=== PATIENT | female | born 1990 | race Two or more races ===

== ENCOUNTER 2023-04-05 11:10 | Outpatient (CLI) | payer OTHER, SELFPAY ==
--- NOTE | 2023-04-05 11:15 | CRLHL7_ITS ---
For Patients: As a result of the Century Cures Act, medical imaging exams and procedure reports are released immediately into your electronic medical record. You may view this report before your referring provider. If you have questions, please contact your health care provider. INDICATION: First trimester scan, establish dates. COMPARISON: None. TECHNIQUE: Real-time rodriguez-scale imaging of the pelvis was performed. FINDINGS: Sonographic imaging demonstrates a single living intrauterine gestation. The embryo demonstrates a regular cardiac rate measuring 113 beats per minute. The embryo`s crown-rump length measurement of 0.3 cm corresponds to a gestational age of 5 weeks 6 days with a sonographic due date of 11/30/2023. There is a normal-appearing yolk sac. There are no gross abnormalities noted within the embryo at this early state of development. The gestational sac has a normal appearance. There is no evidence of a perigestational hemorrhage. The amount of fluid within the sac appears appropriate for gestational age. The cervix is closed. The myometrium appears normal. The ovaries are of normal size. Corpus luteal cyst right ovary. There are no suspicious fluid collections noted in the cul-de-sac. IMPRESSION: Normal early first trimester OB ultrasound exam. Gestational age calculated at 5 weeks 6 days with a sonographic due date of 11/30/2023. Dictated by Manish Rodriguez MD @ 04/05/2023 11:54:44 AM (Electronically Signed)
== END 2023-04-05 11:11 | disposition home or self-care (01) ==
LOC: US 11:11
PROVIDERS: Visit Provider Physician Assistant
DX: Z34.91 Encounter for supervision of normal pregnancy, unspecified, first trimester (principal); Z3A.01 Less than 8 weeks gestation of pregnancy
CPT/HCPCS: 76817; 84702

== ENCOUNTER 2023-04-15 10:56 | Outpatient (CLI) | payer OTHER, SELFPAY | END 2023-04-15 10:57 | disposition home or self-care (01) | LOC: NFLDREF 04-17 10:19 | PROVIDERS: Visit Provider Physician Assistant | DX: Z34.90 Encounter for supervision of normal pregnancy, unspecified, unspecified trimester (principal) | CPT/HCPCS: 84702 ==

== ENCOUNTER 2023-04-23 12:47 | Outpatient (CLI) | payer SELFPAY | END 2023-04-23 12:48 | disposition home or self-care (01) | PROVIDERS: Visit Provider Physician Assistant | DX: O20.9 Hemorrhage in early pregnancy, unspecified (principal) | CPT/HCPCS: 84702 ==

== ENCOUNTER 2023-04-25 10:06 | Outpatient (CLI) | payer SELFPAY | END 2023-04-25 10:07 | disposition home or self-care (01) | LOC: NFLDREF 10:35 | PROVIDERS: Visit Provider Physician Assistant | DX: O03.9 Complete or unspecified spontaneous abortion without complication (principal) | CPT/HCPCS: 84702 ==